=== PATIENT | female | born 1965 | race African-American/Black ===

== ENCOUNTER 2017-03-25 14:10 | Inpatient (IN) | payer OTHER ==
[2017-03-25 17:07] VITALS: BMI 22.6
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
[2017-03-25] MEDS ORDERED: MAGNESIUM HYDROX 2400MG/30ML ORAL SUSPENSION 30 ML CUP PO PRN (18:02)
[2017-03-25] MEDS ORDERED: guaiFENesin/D-METHORPHAN HB 10 ML UNIT-DOSE CUPS PO PRN (18:02)
[2017-03-25] MEDS ORDERED: MAGNESIUM CITRATE 300 ML BOTTLE PO PRN (18:02)
[2017-03-25] MEDS ORDERED: diphenhydrAMINE HCL 50 MG CAPSULE PO PRN (18:02)
[2017-03-25] MEDS ORDERED: P-EPHED 60MG/TRIPROLIDI 2.5MG TABLET PO PRN (18:02)
[2017-03-25] MEDS ORDERED: ACETAMINOPHEN 325 MG TABLET (FP) PO PRN (18:02)
[2017-03-25] MEDS ORDERED: MAG HYDROX/AL HYDROX/SIMETH 30 ML UNIT-DOSE CUP PO PRN (18:02)
[2017-03-25] MEDS ORDERED: NICOTINE POLACRILEX 4 MG GUM BC PRN (18:02)
[2017-03-25] MEDS ORDERED: LOPERAMIDE HCL 2 MG CAPSULE PO PRN (18:02)
[2017-03-25] MEDS ORDERED: MENTHOL/PHENOL 1 EACH UD MM PRN (18:02)
[2017-03-25] MEDS: chlordiazePOXIDE HCL 25 MG CAPSULE PO PRN (19:14)
[2017-03-25 21:24] LABS: URINE APPEARANCE CLEAR; URINE BILIRUBIN NEGATIVE (NEGATIVE); URINE BLOOD NEGATIVE (NEGATIVE); URINE COLOR DKYELLOW; URINE GLUCOSE (UA) NEGATIVE (NEGATIVE); URINE KETONE TRACE (NEGATIVE); URINE NITRITE NEGATIVE (NEGATIVE); URINE UROBILINOGEN NEGATIVE E.U./dl (0.2-1.0)
[2017-03-25 22:02] LABS: URINE LEUK ESTERASE 1+ (NEGATIVE); URINE PROTEIN 1+ (NEGATIVE)
[2017-03-25 22:43] LABS: URINE MUCUS MANY; URINE WBC 8 /hpf (3-5)
[2017-03-25] MEDS: THIAMINE HCL 100 MG TABLET (FP) PO SCH (22:57)
[2017-03-25] MEDS: chlordiazePOXIDE HCL 25 MG CAPSULE PO SCH (22:57)
[2017-03-25] MEDS: RANITIDINE HCL 150 MG TABLET (FP) PO SCH (22:58)
[2017-03-26] MEDS: chlordiazePOXIDE HCL 25 MG CAPSULE PO SCH ×4 (05:44→22:39)
[2017-03-26 08:07] LABS: URINE RBC 1 /hpf (0-3)
[2017-03-26] MEDS ORDERED: METHADONE HCL 10 MG TABLET PO ONE (08:59)
[2017-03-26] MEDS ORDERED: METHADONE 80 MG, METHADONE 30 MG PO ONE (09:10)
[2017-03-26] MEDS ORDERED: METHADONE HCL 40 MG DISPERSABLE TABLET ONE (09:37)
[2017-03-26] MEDS ORDERED: METHADONE HCL 10 MG TABLET ONE (09:38)
[2017-03-26 10:06] LABS: MCH 23.5 pg (25.7-33.7); MCHC 31.2 g/dl (32.0-36.0); MEAN CELL VOLUME 75.4 fl (80-96); MEAN PLT VOLUME 8.8 fl (7.5-11.1); PLATELET COUNT 286 K/MM3 (134-434); RDW 17.8 % (11.6-15.6)
[2017-03-26 10:27] LABS: ALBUMIN 3.6 g/dl (3.4-5.0); BILIRUBIN,TOTAL 0.4 mg/dL (0.2-1.0); CALCIUM 8.6 mg/dL (8.5-10.1); COCKROFT - GAULT 73.1; TOT PROT 7.6 g/dl (6.4-8.2)
[2017-03-26] MEDS: NICOTINE 21 MG/24 HOURS TOPICAL PATCH TD SCH (10:39)
[2017-03-26] MEDS: RANITIDINE HCL 150 MG TABLET (FP) PO SCH ×2 (10:40→22:39)
[2017-03-26] MEDS: PRENATAL VITAMINS W/ FOLIC ACID TABLET (FP) PO SCH (10:40)
--- NOTE | 2017-03-26 11:02 | PN ---
S CIWA - CIWA Score Nausea/Vomitin Muscle Tremors: 2 Anxiety: 2 Agitation: 2 Paroxysmal Sweats: 3 Orientation: 0-Oriented Tacttile Disturbances: 2-Mild Itch/Numbness/Burn Auditory Disturbances: 0-None Visual Disturbances: 0-None Headache: 0-None Present CIWA-Ar Total Score: 13 BHS Progress Note (SOAP) Subjective: LBP, SWEATS, LBP, WANTS TO wear shoes Objective: 03/26/17 10:59 Vital Signs Temperature 98.2 F 03/26/17 06:11 Pulse Rate 57 L 03/26/17 06:11 Respiratory Rate 16 03/26/17 06:11 Blood Pressure 101/61 03/26/17 06:11 O2 Sat by Pulse Oximetry (%) Laboratory Tests 03/25/17 03/26/17 03/26/17 19:59 06:00 06:00 WBC 4.0 RBC 3.95 Hgb 9.3 L Hct 29.8 L MCV 75.4 L MCHC 31.2 L RDW 17.8 H Plt Count 286 MPV 8.8 Sodium 139 Potassium 4.3 Chloride 101 Carbon Dioxide 29 Anion Gap 9 BUN 9 Creatinine 1.0 Creat Clearance w eGFR 58.69 Random Glucose 79 Calcium 8.6 Total Bilirubin 0.4 AST 24 ALT 22 Alkaline Phosphatase 75 Total Protein 7.6 Albumin 3.6 Urine Color Dkyellow Urine Appearance Clear Urine pH 5.0 Urine Protein 1+ H Urine Glucose (UA) Negative Urine Ketones Trace H Urine Blood Negative Urine Nitrite Negative Urine Bilirubin Negative Urine Urobilinogen Negative Ur Leukocyte Esterase 1+ H Urine RBC 1 Urine WBC 8 Ur Epithelial Cells Rare Urine Mucus Many PT AOX3 IN NAD AMBULATING 03/26/17 11:01 Assessment: 03/26/17 11:01 withdrawal sx;s Plan: cont. detox increase fluids may wear shoes motrin prn
--- NOTE | 2017-03-26 11:15 | EKG ---
Test Reason : Blood Pressure : / mmHG Vent. Rate : 056 BPM Atrial Rate : 056 BPM P-R Int : 172 ms QRS Dur : 094 ms QT Int : 370 ms P-R-T Axes : 061 066 027 degrees QTc Int : 357 ms SINUS BRADYCARDIA NONSPECIFIC T WAVE ABNORMALITY ABNORMAL ECG NO PREVIOUS ECGS AVAILABLE CLINICAL CORRELATION IS RECOMMENDED BASELINE ARTIFACT Confirmed by LENA CHILDRESS MD ([id number]) on 03/26/2017 11:15:06 AM Referred By: Confirmed By:LENA CHILDRESS MD
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
[2017-03-26] MEDS: OLANZapine 2.5 MG TABLET PO SCH (22:39)
[2017-03-26] MEDS: FERROUS SO4 325 MG TABLET (FP) PO SCH (22:39)
[2017-03-26] MEDS: THIAMINE HCL 100 MG TABLET (FP) PO SCH (22:39)
[2017-03-27] MEDS ORDERED: METHADONE HCL 10 MG TABLET ONE (05:01)
[2017-03-27] MEDS ORDERED: METHADONE HCL 40 MG DISPERSABLE TABLET ONE (05:01)
[2017-03-27] MEDS ORDERED: METHADONE HCL 40 MG DISPERSABLE TABLET PO SCH (06:00)
[2017-03-27] MEDS: METHADONE 80 MG, METHADONE 30 MG PO SCH (06:32)
[2017-03-27] MEDS: chlordiazePOXIDE HCL 25 MG CAPSULE PO SCH ×3 (07:43→17:16)
[2017-03-27] MEDS: PRENATAL VITAMINS W/ FOLIC ACID TABLET (FP) PO SCH (10:30)
[2017-03-27] MEDS: SERTRALINE HCL 50 MG TABLET (FP) PO SCH (10:30)
[2017-03-27] MEDS: RANITIDINE HCL 150 MG TABLET (FP) PO SCH ×2 (10:30→22:46)
[2017-03-27] MEDS: FERROUS SO4 325 MG TABLET (FP) PO SCH ×2 (10:30→22:46)
[2017-03-27] MEDS: NICOTINE 21 MG/24 HOURS TOPICAL PATCH TD SCH (10:32)
--- NOTE | 2017-03-27 10:42 | PN ---
S CIWA - CIWA Score Nausea/Vomitin-No Nausea/No Vomiting Muscle Tremors: 3 Anxiety: 2 Agitation: 3 Paroxysmal Sweats: 2 Orientation: 0-Oriented Tacttile Disturbances: 0-None Auditory Disturbances: 0-None Visual Disturbances: 0-None Headache: 0-None Present CIWA-Ar Total Score: 10 BHS Progress Note (SOAP) Subjective: sweats little shakes interrupted sleep body aches Objective: 03/27/17 10:49 Vital Signs Temperature 97.9 F 03/27/17 06:00 Pulse Rate 63 03/27/17 06:00 Respiratory Rate 18 03/27/17 06:00 Blood Pressure 105/60 03/27/17 06:00 O2 Sat by Pulse Oximetry (%) Laboratory Tests 03/25/17 03/26/17 03/26/17 19:59 06:00 06:00 WBC 4.0 RBC 3.95 Hgb 9.3 L Hct 29.8 L MCV 75.4 L MCHC 31.2 L RDW 17.8 H Plt Count 286 MPV 8.8 Sodium 139 Potassium 4.3 Chloride 101 Carbon Dioxide 29 Anion Gap 9 BUN 9 Creatinine 1.0 Creat Clearance w eGFR 58.69 Random Glucose 79 Calcium 8.6 Total Bilirubin 0.4 AST 24 ALT 22 Alkaline Phosphatase 75 Total Protein 7.6 Albumin 3.6 Urine Color Dkyellow Urine Appearance Clear Urine pH 5.0 Ur Specific [place] >= 1.030 H Urine Protein 1+ H Urine Glucose (UA) Negative Urine Ketones Trace H Urine Blood Negative Urine Nitrite Negative Urine Bilirubin Negative Urine Urobilinogen Negative Ur Leukocyte Esterase 1+ H Urine RBC 1 Urine WBC 8 Ur Epithelial Cells Rare Urine Mucus Many RPR Titer 03/26/17 06:00 WBC RBC Hgb Hct MCV MCHC RDW Plt Count MPV Sodium Potassium Chloride Carbon Dioxide Anion Gap BUN Creatinine Creat Clearance w eGFR Random Glucose Calcium Total Bilirubin AST ALT Alkaline Phosphatase Total Protein Albumin Urine Color Urine Appearance Urine pH Ur Specific [place] Urine Protein Urine Glucose (UA) Urine Ketones Urine Blood Urine Nitrite Urine Bilirubin Urine Urobilinogen Ur Leukocyte Esterase Urine RBC Urine WBC Ur Epithelial Cells Urine Mucus RPR Titer Nonreactive awake/alert ambulating no acute distress iron supplement ordered Assessment: 03/27/17 10:50 withdrawal sx Plan: continue detox increase fluids iron supplement
[2017-03-27] MEDS: chlordiazePOXIDE HCL 25 MG CAPSULE PO PRN (17:35)
[2017-03-27] MEDS: chlordiazePOXIDE 5 MG CAPSULE PO SCH ×2 (22:41→22:49)
[2017-03-27] MEDS: THIAMINE HCL 100 MG TABLET (FP) PO SCH (22:46)
[2017-03-27] MEDS: OLANZapine 2.5 MG TABLET PO SCH (22:46)
[2017-03-28] MEDS ORDERED: METHADONE HCL 40 MG DISPERSABLE TABLET ONE (04:51)
[2017-03-28] MEDS ORDERED: METHADONE HCL 10 MG TABLET ONE (04:52)
[2017-03-28] MEDS: METHADONE 80 MG, METHADONE 30 MG PO SCH (07:41)
[2017-03-28] MEDS: chlordiazePOXIDE 5 MG CAPSULE PO SCH ×3 (07:42→17:10)
[2017-03-28] MEDS: PRENATAL VITAMINS W/ FOLIC ACID TABLET (FP) PO SCH (10:38)
[2017-03-28] MEDS: SERTRALINE HCL 50 MG TABLET (FP) PO SCH (10:38)
[2017-03-28] MEDS: RANITIDINE HCL 150 MG TABLET (FP) PO SCH ×2 (10:38→22:38)
[2017-03-28] MEDS: FERROUS SO4 325 MG TABLET (FP) PO SCH ×2 (10:38→22:38)
[2017-03-28] MEDS: NICOTINE 21 MG/24 HOURS TOPICAL PATCH TD SCH (10:39)
--- NOTE | 2017-03-28 11:00 | PN ---
BHS Progress Note (SOAP) Subjective: sweats tired groggy Objective: 03/28/17 11:00 Vital Signs Temperature 98.1 F 03/28/17 10:38 Pulse Rate 63 03/28/17 10:38 Respiratory Rate 20 03/28/17 10:38 Blood Pressure 96/64 03/28/17 10:38 O2 Sat by Pulse Oximetry (%) awake/alert ambulating no acute distress Assessment: 03/28/17 11:01 withdrawal sx Plan: continue detox increase fluids d/c in am
[2017-03-28] MEDS: chlordiazePOXIDE HCL 10 MG CAPSULE PO SCH (22:38)
[2017-03-28] MEDS: THIAMINE HCL 100 MG TABLET (FP) PO SCH (22:38)
[2017-03-28] MEDS: OLANZapine 2.5 MG TABLET PO SCH (23:42)
[2017-03-29] MEDS ORDERED: METHADONE HCL 40 MG DISPERSABLE TABLET ONE (05:05)
[2017-03-29] MEDS ORDERED: METHADONE HCL 10 MG TABLET ONE (05:06)
[2017-03-29] MEDS: chlordiazePOXIDE HCL 10 MG CAPSULE PO SCH ×2 (05:32→11:28)
[2017-03-29] MEDS: METHADONE 80 MG, METHADONE 30 MG PO SCH (07:21)
--- NOTE | 2017-03-29 08:45 | DS ---
[facility] Detox Discharge Summary Admission Date: 03/25/17 Discharge Date: 03/29/17 - History Present History: Alcohol Dependence, Cocaine Dependence, Opioid Dependence, MMTP - Physical Exam Results Vital Signs: Vital Signs Temperature 97.5 F L 03/29/17 06:00 Pulse Rate 94 H 03/29/17 06:00 Respiratory Rate 16 03/29/17 06:00 Blood Pressure 107/60 03/29/17 06:00 O2 Sat by Pulse Oximetry (%) - Treatment Hospital Course: Detox Protocol Followed, Detoxed Safely, Responded well, Discharged Condition Good, Rehab Referral Accepted - Medication Discharge Medications: Ambulatory Orders Olanzapine [Zyprexa -] 0 mg PO HS 03/25/17 Sertraline HCl [Zoloft -] 0 mg PO DAILY 03/25/17 Olanzapine [Zyprexa -] 2.5 mg PO HS #30 tablet 03/26/17 Sertraline HCl [Zoloft -] 50 mg PO DAILY #30 tablet 03/26/17 - Diagnosis (1) Alcohol dependence with uncomplicated withdrawal Current Visit: Yes Status: Chronic (2) Cocaine dependence Current Visit: Yes Status: Chronic Qualifiers: Substance use status: uncomplicated Qualified Code(s): F14.20 - Cocaine dependence, uncomplicated (3) Nicotine dependence Current Visit: Yes Status: Chronic Qualifiers: Nicotine product type: cigarettes Substance use status: uncomplicated Qualified Code(s): F17.210 - Nicotine dependence, cigarettes, uncomplicated (4) Opioid dependence on agonist therapy Current Visit: Yes Status: Acute (5) Weight loss Current Visit: Yes Status: Acute (6) Bipolar disorder Current Visit: Yes Status: Chronic (7) GERD (gastroesophageal reflux disease) Current Visit: Yes Status: Chronic Qualifiers: Esophagitis presence: without esophagitis Qualified Code(s): K21.9 - Gastro-esophageal reflux disease without esophagitis (8) Hepatitis C antibody test positive Current Visit: Yes Status: Chronic (9) Methadone maintenance therapy patient Current Visit: Yes Status: Chronic (10) Bipolar II disorder Current Visit: Yes Status: Suspected - AMA Did Patient Leave Against Medical Advice: No
[2017-03-29] MEDS: PRENATAL VITAMINS W/ FOLIC ACID TABLET (FP) PO SCH (10:25)
[2017-03-29] MEDS: RANITIDINE HCL 150 MG TABLET (FP) PO SCH (10:26)
[2017-03-29] MEDS: FERROUS SO4 325 MG TABLET (FP) PO SCH (10:26)
[2017-03-29] MEDS: SERTRALINE HCL 50 MG TABLET (FP) PO SCH (10:30)
[2017-03-29 11:00] VITALS: BP 110/67; PULSE 76; TEMP 98.8
[2017-03-29] MEDS: NICOTINE 21 MG/24 HOURS TOPICAL PATCH TD SCH (11:28)
== END 2017-03-29 11:30 | disposition other institution (70) | DRG 773 ==
LOC: YASAS 14:10 → Y6N 18:20
PROVIDERS: ADMIT Internal Medicine Addiction Medicine; ATTEND Internal Medicine Addiction Medicine
PROC: HZ2ZZZZ Detoxification Services for Substance Abuse Treatment (ICD-10-PCS; principal; 2017-03-29)
DX: F10.230 Alcohol dependence with withdrawal, uncomplicated (principal); F11.20 Opioid dependence, uncomplicated; F14.20 Cocaine dependence, uncomplicated; F17.210 Nicotine dependence, cigarettes, uncomplicated; F31.9 Bipolar disorder, unspecified; K21.9 Gastro-esophageal reflux disease without esophagitis; B18.2 Chronic viral hepatitis C; R63.4 Abnormal weight loss; Z68.22 Body mass index [BMI] 22.0-22.9, adult
CPT/HCPCS: 36415; 80053; 81003; 81015; 85027; 86593; 93005; 93010